=== PATIENT | female | born 1990 | race Caucasian/White ===

== ENCOUNTER 2020-03-14 08:58 | Outpatient (REF) | payer BC, SELFPAY ==
[2020-03-14 10:15] LABS: Hematocrit 39.7 % (37-47); Hemoglobin 13.1 g/dl (12.0-16.0); Mean Corpuscular Volume 93.9 fL (80-98); Mean Platelet Volume 9.5 fL (9.4-12.3); Platelet Count 392 X10*3/uL (160-400); Red Blood Count 4.23 X10*6/uL (4.20-5.50); Red Cell Distribution Width 12.3 % (11.0-16.0); White Blood Count 5.5 X10*3/uL (4.8-10.8)
[2020-03-14 10:53] LABS: Alanine Aminotransferase 25 U/L (0-31); Albumin Level 4.2 g/dL (3.5-5.0); Alkaline Phosphatase 45 U/L (39-117); Anion Gap 14 (12-20); Aspartate Amino Transferase 30 U/L (5-31); Bilirubin Total 0.4 mg/dL (0.0-1.0); Blood Urea Nitrogen 8 mg/dL (9-16); Calcium 8.2 mg/dL (8.4-10.2); Carbon Dioxide 24 mmol/L (22-29); Chloride 106 mmol/L (96-108); Estimated Glomerular Filt Rate > 60; Glucose Fasting 94 mg/dL (60-99); Potassium 4.2 mmol/l (3.3-5.1); Sodium 140 mmol/L (135-145); Total Protein 6.7 g/dL (6.5-8.0)
[2020-03-15 04:30] LABS: HBS Num1 0.53 mIU/mL (0-7.99); ~Hepatitis B Surface Antibody NONREACTIVE (Nonreactive)
[2020-03-16 19:46] LABS: TS Negative Control Passed; TS Panel A 0; TS Panel B 0; TS Positive Control Passed; TSpotTB Negative (SeeBelow)
== END 2020-03-14 08:59 | disposition home or self-care (01) ==
LOC: HO.LAB 08:58
PROVIDERS: Visit Provider Internal Medicine
DX: Z02.1 Encounter for pre-employment examination (principal)
CPT/HCPCS: 36415; 80053; 85027; 86481; 86706

== ENCOUNTER 2021-12-07 01:35 | Emergency (ER) | payer BC, SELFPAY ==
--- NOTE | ~2021-12-07 | XR_ITS ---
EXAMINATION: XR clavicle RT, XR shoulder RT min 2V CLINICAL INFORMATION: Reason for Exam fall COMPARISON: None. TECHNIQUE: 1 view of the clavicle. 3 views of the right shoulder FINDINGS: No acute fracture or dislocation. Clavicle and acromioclavicular joints are intact. Glenohumeral joint intact. Soft tissues unremarkable. XR/XR shoulder RT min 2V IMPRESSION: No acute fracture or dislocation.
--- NOTE | ~2021-12-07 | XR_ITS ---
EXAMINATION: XR clavicle RT, XR shoulder RT min 2V CLINICAL INFORMATION: Reason for Exam fall COMPARISON: None. TECHNIQUE: 1 view of the clavicle. 3 views of the right shoulder FINDINGS: No acute fracture or dislocation. Clavicle and acromioclavicular joints are intact. Glenohumeral joint intact. Soft tissues unremarkable. XR/XR clavicle RT IMPRESSION: No acute fracture or dislocation.
[2021-12-07 01:44] VITALS: BP 145/88; PULSE 93; RESP 18; TEMP 37; O2SAT 99; BMI 23.6
--- NOTE | 2021-12-07 02:26 | ED_ITS ---
HPI - Extremity Problem General Chief complaint: Extremity Injury, Upper Stated complaint: R shoulder pain, fall Time Seen by Provider: 12/07/21 01:58 Source: patient Mode of arrival: ambulatory Limitations: no limitations History of Present Illness Complaint: extremity pain Onset (ago): hour(s) (8pm ) Pain Consistency: constant Location: right and upper extremity Quality: aching Radiation: none Relieving factors: immobilization Exacerbating factors: range of motion Associated symptoms: denies other symptoms Context: other (hit shoulder/clavicle area into another person doing slip and slide) Related Data Allergies Allergy/AdvReac Type Severity Reaction Status Date / Time No Known Allergies Allergy Verified 12/07/21 01:46 Review of Systems Review of Systems: Constitutional : No Fever, No Chills ENT/Mouth : No Ear Pain, No Hoarseness, No sore throat Eyes: No Eye Pain, No Swelling, No Redness, No Foreign Body Cardiovascular : No Chest Pain, No SOB Respiratory : No Cough, No Dyspnea Gastrointestinal : No Nausea, No Vomiting, No Diarrhea, No abdominal Pain Genitourinary : No Dysuria, No Hematuria Musculoskeletal : positive joint pain, No Myalgias, No Joint Swelling Skin : No Skin lacerations, No rash PMFSH Past Medical History Attestation statement: The following information was validated with the patient. Medical History No pertinent past medical history Social History Social History (Updated 12/07/21 @ 02:28 by Emily Fragoso DO) Patient Tobacco Use Status: Never used Tobacco Advance Directives: No Advance Directives Information Provided: No Physical Exam Vital Signs: Vital Signs: Last Vital Signs Temp 98.6 F 12/07/21 01:44 Pulse 93 12/07/21 01:44 Resp 18 12/07/21 01:44 BP 145/88 H 12/07/21 01:44 Pulse Ox 99 12/07/21 01:44 O2 Del Method 12/07/21 01:44 BMI result Body Mass Index 23.6 Appearance: Alert. Oriented X3. No acute distress. Eyes: Pupils equal, round and reactive to light. ENT: Pharynx normal. Neck: Normal inspection. Neck supple. no midline ttp CVS: Normal heart rate and rhythm. Pulses normal. Respiratory: No respiratory distress. Breath sounds normal. Abdomen: Soft and non-tender. Skin: Skin warm and dry. Normal skin color. Normal skin turgor. Extremities: No lower extremity edema. R shoulder ttp along AC joint and ttp with range of motion distal NV intact Neuro: Oriented X 3. No motor deficit. No sensory deficit. Course Course Course Narrative: no obvious fracture will place in sling AC joint appears wide MDM - Extremity (Nontraumatic) MDM Narrative Medical decision making narrative: 31 yo female with R shoulder pain following injury while slip and sliding - she is NV intact, no head or neck pain possible AC joint issue/clavicle fracture - at this time will obtain xrays Procedures Orthopedic Splinting/Casting Injury #1: Side: right Upper Extremity Injury Location: shoulder Upper Extremity Immobilizer: sling/shoulder immobilizer Discharge Plan Discharge Clinical Impression: Shoulder sprain Qualifiers: Encounter type: initial encounter Shoulder sprain type: unspecified sprain Laterality: right Qualified Code(s): S43.401A - Unspecified sprain of right shoulder joint, initial encounter Acromioclavicular joint separation Qualifiers: Encounter type: initial encounter Laterality: right Qualified Code(s): S43.101A - Unspecified dislocation of right acromioclavicular joint, initial encounter Patient Disposition: Home, Self-Care Instructions: Acromioclavicular Separation (ED), Shoulder Sprain (ED) Additional Instructions: return to ED for any worsening symptoms or concerns wear sling for next 7 days, please follow up with your doctor- will also give you number for our orthopedics doctor take tylenol and motrin as needed for pain Shoulder motions to be avoided include cross-body adduction, extreme internal rotation (ie, behind the back), and overhead movements. Referrals: Brigitte Barton PA-C [Physician Enrollment Counselor] - 1 week Stand Alone Forms: Work/School Release
--- NOTE | 2021-12-07 02:56 | PC.NURSE ---
Pt reports having pain with movement, pt declines pain med at this time.
== END 2021-12-07 02:55 | disposition home or self-care (01) ==
PROVIDERS: Emergency Provider Emergency Medicine
DX: S43.401A Unspecified sprain of right shoulder joint, initial encounter (principal); S43.101A Unspecified dislocation of right acromioclavicular joint, initial encounter; M25.511 Pain in right shoulder; Y33.XXXA Other specified events, undetermined intent, initial encounter; Y93.9 Activity, unspecified; Y92.007 Garden or yard of unspecified non-institutional (private) residence as the place of occurrence of the external cause; Y99.9 Unspecified external cause status
CPT/HCPCS: 29105; 73000; 73030; 99283